=== PATIENT | female | born 1950 | race Caucasian/White ===

== ENCOUNTER 2018-09-30 11:54 | Emergency (ER) | payer MEDICARE ==
[~2018-09-30] VITALS: Ht 154.9 cm; Wt 75.5 kg
[2018-09-30] MEDS ORDERED: MAGN1CAP PO (12:12)
[2018-09-30] MEDS ORDERED: IRON15CH PO (12:12)
[2018-09-30] MEDS ORDERED: D3 H2000 PO (12:12)
[2018-09-30] MEDS ORDERED: CHONDR PO (12:12)
[2018-09-30] MEDS ORDERED: GLUCOSAMINE PO (12:12)
[2018-09-30] MEDS ORDERED: CALC600T5 PO (12:12)
[2018-09-30] MEDS ORDERED: DOCU-129 PO (12:12)
[2018-09-30] MEDS ORDERED: HYDR-3719 PO (12:12)
[2018-09-30] MEDS ORDERED: CETI5SOL3 PO (12:12)
[2018-09-30] MEDS ORDERED: CENT1TAB PO (12:12)
[2018-09-30 12:48] LABS: BASO % 0.8 % (0.0-1.0); EOS # 0.1 10^3/uL (0.0-0.50); EOS % 2.3 % (0.0-3.0); HEMATOCRIT 40.3 % (36.0-47.0); HEMOGLOBIN 13.2 g/dl (12.0-15.5); LYMPH # 1.4 10^3/uL (1.5-4.5); LYMPH % 28.8 % (24.0-44.0); MEAN CORPUSCULAR HGB CONC 32.8 g/dl (32.0-36.5); MEAN CORPUSCULAR VOLUME 88.6 fl (80.0-96.0); MONO # 0.4 10^3/uL (0.0-0.8); MONO % 8.4 % (0.0-5.0); NEUTROPHILS # 2.9 10^3/uL (1.8-7.7); NEUTROPHILS % 59.5 % (36.0-66.0); PLATELET COUNT, AUTOMATED 236 10^3/uL (150-450); RED BLOOD COUNT 4.55 10^6/uL (4.00-5.40); WHITE BLOOD COUNT 4.9 10^3/uL (4.0-10.0)
--- NOTE | 2018-09-30 12:56 | REP ---
CT Head without contrast HISTORY: Infarction COMPARISON: None Areas of decreased attenuation are present in the basal ganglia. These represent old lacunar infarctions. Areas of decreased attenuation are present in the periventricular white matter. This represents small-vessel ischemic disease. There is no intraparenchymal hemorrhage, acute infarct, mass or midline shift. The ventricular system and cortical sulci are dilated consistent with minimal volume loss. There is no extra cerebral collection. There is no fracture. The visualized sinuses are clear. IMPRESSION: 1. Old bilateral basal ganglia lacunar infarctions. 2. Small vessel ischemic disease. 3. Minimal volume loss. Electronically Signed by Luis M Heath MD 09/30/2018 12:47 P
[2018-09-30 13:00] LABS: PROTHROMBIN TIME 13.3 SECONDS (12.1-14.4)
[2018-09-30 13:01] LABS: PARTIAL THROMBOPLASTIN TIME 29.6 SECONDS (25.4-37.6)
[2018-09-30 13:12] LABS: BLOOD UREA NITROGEN 18 MG/DL (7-18); CALCIUM LEVEL 9.1 MG/DL (8.8-10.2); CARBON DIOXIDE LEVEL 30 MEQ/L (21-32); CHLORIDE LEVEL 107 MEQ/L (98-107); CPK CREATINE PHOSPHOKINASE 110 U/L (26-192); CREATININE FOR GFR 0.71 MG/DL (0.55-1.30); GLOMERULAR FILTRATION RATE > 60.0 (>45); GLUCOSE, FASTING 85 MG/DL (70-100); MB/CK RELATIVE INDEX 2.36 (< OR =4); SODIUM LEVEL 142 MEQ/L (136-145); TROPONIN I < 0.02 NG/ML (< 0.10)
--- NOTE | 2018-09-30 13:13 | REP ---
Oral chest x-ray: Single view. History: CVA. Findings: EKG electrodes are seen. Lungs are well inflated and clear. Heart size is borderline. The aorta is calcific. Pulmonary vasculature is not increased. Pleural air. No bony abnormality is seen. Impression: Borderline heart size. No active disease. Electronically Signed by Eric Hatch MD 09/30/2018 01:04 P
[2018-09-30 14:31] LABS: MAGNESIUM LEVEL 2.1 MG/DL (1.8-2.4)
[2018-09-30] MEDS ORDERED: FERR325T82 PO (14:54)
[2018-09-30] MEDS ORDERED: GLUCTAB6 PO (14:54)
[2018-09-30] MEDS ORDERED: ALL10TAB28 PO (14:54)
[2018-09-30] MEDS ORDERED: niCARdipine IV 40 MG in APPROPRIATE DILUENT 1 EA IV SCH (15:03)
--- NOTE | 2018-09-30 15:19 | REP ---
MR BRAIN WITHOUT CONTRAST: HISTORY: Headache. COMPARISON: CT 09/30/2018. Areas of increased signal intensity on T2-weighted images are present in the basal ganglia. These represent old lacunar infarctions. Areas of increased signal intensity on T2-weighted images are present in the periventricular and subcortical white matter. This represents small vessel ischemic disease. There is no intraparenchymal hemorrhage, acute infarct, mass, or midline shift. The ventricular system and cortical sulci are dilated consistent with minimal volume loss. A very small subacute subdural hematoma is present overlying the right frontal lobe at the vertex. The hematoma measures 8 mm in width by 4 mm in thickness. The sinuses are clear. IMPRESSION: 1. Old bilateral basal ganglia lacunar infarctions. 2. Small vessel ischemic disease. 3. Minimal volume loss. 4. There is a t a very small 9 mm subacute subdural hematoma over the right frontal lobe at the vertex. Results were discussed with Dr. Landis at 2:50 p.m., 09/30/2018. Electronically Signed by Luis M Heath MD 09/30/2018 03:26 P
--- NOTE | 2018-09-30 15:19 | REP ---
MRA BRAIN WITHOUT CONTRAST: HISTORY: Headaches. 3D [id number] MR angiography was performed at the level of the lower [place]. There is no aneurysm or arteriovenous malformation. Mild atherosclerotic disease involves the cavernous internal carotid arteries. The P1 segment of the right posterior cerebral artery is hypoplastic. Major intracranial vessels are patent. The left vertebral artery is dominant. The right vertebral artery terminates in the right posterior inferior cerebellar artery. IMPRESSION: 1. There is no aneurysm or arteriovenous malformation. 2. Atherosclerotic disease as described above. Electronically Signed by Luis M Heath MD 09/30/2018 03:26 P
[2018-09-30 15:41] VITALS: BP 217/93
--- NOTE | 2018-09-30 23:22 | ECGEPIP ---
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
== END 2018-09-30 15:41 | disposition short-term general hospital (02) ==
LOC: M ED 11:54
DX: I16.0 Hypertensive urgency (principal); I62.00 Nontraumatic subdural hemorrhage, unspecified; I10 Essential (primary) hypertension; Z79.899 Other long term (current) drug therapy; Z88.0 Allergy status to penicillin; Z88.8 Allergy status to other drugs, medicaments and biological substances

== ENCOUNTER → 2019-05-18 | Outpatient (REF) | payer MEDICARE ==
[~2019-05-18] MED LIST: ALL10TAB29 PO; CALC600T5 PO; CENT1TAB PO; CETI5SOL3 PO; CHONDR PO; D3 H2000 PO; DOCU-129 PO; FERR325T82 PO; GLUCOSAMINE PO; GLUCTAB6 PO; HYDR-3719 PO; IRON15CH PO; MAGN1CAP PO
[2019-05-18 17:49] LABS: APPEARANCE, URINE CLEAR (CLEAR); BACTERIA, URINE AUTO NEGATIVE (NEGATIVE); BILIRUBIN, URINE AUTO NEGATIVE (NEGATIVE); BLOOD, URINE BLOOD NEGATIVE (NEGATIVE); COLOR, URINE YELLOW (YELLOW); GLUCOSE, URINE (UA) AUTO NEGATIVE (NEGATIVE); KETONE, URINE AUTO NEGATIVE (NEGATIVE); LEUKOCYTE ESTERASE, URINE AUTO NEGATIVE (NEGATIVE); MUCUS, URINE SMALL (NEGATIVE); NITRITE, URINE AUTO NEGATIVE (NEGATIVE); PROTEIN, URINE AUTO NEGATIVE (NEGATIVE); RBC, URINE AUTO 0 /HPF (0-3); SPECIFIC GRAVITY URINE AUTO 1.008 (1.002-1.035); SQUAMOUS EPITHELIAL CELL UR AU 0 /HPF (0-6); UROBILINOGEN, URINE AUTO 0.2 mg/dL (0.0-2.0); WBC, URINE AUTO 0 /HPF (0-3)
== END ==
LOC: M LAB REF 16:26
PROVIDERS: ATTEND Obstetrics & Gynecology
DX: N39.46 Mixed incontinence (principal)

== ENCOUNTER 2019-05-26 08:26 | Outpatient (RCR) | payer MEDICARE | END 2019-06-09 | LOC: M PT 08:26 | PROVIDERS: ATTEND Obstetrics & Gynecology | DX: Z51.89 Encounter for other specified aftercare (principal); N32.81 Overactive bladder; N39.42 Incontinence without sensory awareness; N39.41 Urge incontinence; R35.1 Nocturia ==

== ENCOUNTER 2019-06-23 09:35 | Outpatient (RCR) | payer MEDICARE | END 2019-07-10 | LOC: M PT 09:35 | PROVIDERS: ATTEND Obstetrics & Gynecology | DX: Z51.89 Encounter for other specified aftercare (principal) ==

== ENCOUNTER 2020-02-10 14:29 | Emergency (ER) | payer MEDICARE ==
[~2020-02-10] VITALS: Ht 154.9 cm; Wt 95.7 kg
[~2020-02-10 14:29] MED LIST changes: -ALL10TAB29 PO; -CALC600T5 PO; +CALC600T61 PO; +CETI-24 PO
[2020-02-10] MEDS ORDERED: TRAM50TA2 (14:38)
[2020-02-10] MEDS ORDERED: AMLO1TAB24 (14:38)
[2020-02-10] MEDS ORDERED: HYDR25TAB (14:38)
--- NOTE | 2020-02-10 16:49 | REPVR ---
PROCEDURE INFORMATION: Exam: US Duplex Left Lower Extremity Veins, Limited Exam date and time: 02/10/2020 4:38 PM Age: 69 years old Clinical indication: Pain; Leg, upper; Left; Additional info: Left leg pain, swelling TECHNIQUE: Imaging protocol: Real-time Duplex ultrasound of the Left Lower Extremity with 2-D reyna scale, color Doppler flow and spectral waveform analysis with image documentation. Limited exam focused on the left lower extremity veins. COMPARISON: No relevant prior studies available. FINDINGS: Left deep veins: Unremarkable. The common femoral, femoral and popliteal veins are patent without thrombus. Normal compressibility, augmentation response and Doppler waveforms. Left superficial veins: Unremarkable. Saphenofemoral junction is patent without thrombus. Soft tissues: 3.2 x 0.8 x 2 cm popliteal cyst. IMPRESSION: 1. No sonographic evidence of deep vein thrombosis. 2. 3.2 x 0.8 x 2 cm popliteal cyst. Electronically signed by: Sean Martinez On 02/10/2020 16:48:30 PM
[2020-02-10 17:11] VITALS: BP 169/85
== END 2020-02-10 17:15 | disposition home or self-care (01) ==
LOC: M ED 14:29
DX: M71.22 Synovial cyst of popliteal space [Baker], left knee (principal); I10 Essential (primary) hypertension; E78.5 Hyperlipidemia, unspecified; Z79.899 Other long term (current) drug therapy; Z88.0 Allergy status to penicillin; Z88.8 Allergy status to other drugs, medicaments and biological substances; Z88.1 Allergy status to other antibiotic agents; Z88.6 Allergy status to analgesic agent

== ENCOUNTER → 2021-02-23 | Outpatient (CLI) | payer MEDICARE ==
[~2021-02-23] MED LIST changes: +AMLO1TAB24; -DOCU-129 PO; +DOCU-153 PO; +HYDR-3490; +TRAM50TA2
--- NOTE | 2021-02-23 13:49 | REP ---
INDICATION: BILAT KNEE PAIN. COMPARISON: None. TECHNIQUE: Three views FINDINGS: There is tricompartmental marginal osteophytosis with asymmetric patellofemoral joint space narrowing and medial compartmental narrowing. There is no evidence of an acute fracture, dislocation, or subluxation. IMPRESSION: Chronic changes as described above. <Electronically signed by Levy Oro > 02/23/21 [id number]
== END ==
LOC: M SOG 09:27
PROVIDERS: ATTEND Orthopaedic Surgery Sports Medicine
DX: M17.0 Bilateral primary osteoarthritis of knee (principal); M25.762 Osteophyte, left knee

== ENCOUNTER → 2021-03-21 | Outpatient (CLI) | payer MEDICARE ==
--- NOTE | 2021-03-21 14:30 | REP ---
INDICATION: LT SHOULDER IMPINGEMENT SYNDROME. COMPARISON: None. TECHNIQUE: Five views FINDINGS: Moderate degenerative changes are seen involving the acromioclavicular joint with asymmetric narrowing and slight marginal osteophytosis. There is a spur arising from the inferior surface of the acromion process projecting into the subacromial space. The glenohumeral relationship is within normal limits. There is no evidence of an acute fracture, dislocation, or subluxation. IMPRESSION: Chronic changes as described above. <Electronically signed by Levy Oro > 03/21/21 [id number]
== END ==
LOC: M SOG 08:54
PROVIDERS: ATTEND Orthopaedic Surgery Sports Medicine
DX: M25.712 Osteophyte, left shoulder (principal); M75.42 Impingement syndrome of left shoulder; M19.012 Primary osteoarthritis, left shoulder

== ENCOUNTER → 2021-09-08 | Outpatient (CLI) | payer MEDICARE ==
[~2021-09-08] MED LIST changes: +ISOVUE-300 61% 50ML VIAL As Ordered ONE; +LIDOCAINE 1% MDV 20ML VIAL As Ordered ONE; +methylPREDNISolone SUSP 40MG/ML 1ML VIAL (DEPO MEDROL) As Ordered ONE
== END ==
LOC: M RADPRO 12:50
PROVIDERS: ATTEND Physician Assistant
DX: S46.212A Strain of muscle, fascia and tendon of other parts of biceps, left arm, initial encounter (principal); X58.XXXA Exposure to other specified factors, initial encounter; Y92.9 Unspecified place or not applicable
CPT/HCPCS: 20610; 77002; J1030; Q9967

== ENCOUNTER → 2021-12-14 | Outpatient (CLI) | payer MEDICARE ==
[~2021-12-14] MED LIST changes: -GLUCTAB6 PO; +GLUCTAB7 PO; -ISOVUE-300 61% 50ML VIAL As Ordered ONE; -LIDOCAINE 1% MDV 20ML VIAL As Ordered ONE; -methylPREDNISolone SUSP 40MG/ML 1ML VIAL (DEPO MEDROL) As Ordered ONE
== END ==
LOC: M PLAIMG 10:52
PROVIDERS: ATTEND Physician Assistant
DX: M50.21 Other cervical disc displacement, high cervical region (principal); M50.121 Cervical disc disorder at C4-C5 level with radiculopathy; M50.322 Other cervical disc degeneration at C5-C6 level; M50.323 Other cervical disc degeneration at C6-C7 level

== ENCOUNTER → 2022-01-11 | Outpatient (CLI) | payer MEDICARE | LOC: M PLAIMG 14:13 | PROVIDERS: ATTEND Physician Assistant | DX: M19.012 Primary osteoarthritis, left shoulder (principal) ==

== ENCOUNTER → 2022-03-02 | Outpatient (CLI) | payer MEDICARE | LOC: M RAD 10:24 | PROVIDERS: ATTEND Nurse Practitioner Family | DX: D49.0 Neoplasm of unspecified behavior of digestive system (principal) ==

== ENCOUNTER → 2022-03-28 | Outpatient (CLI) | payer MEDICARE ==
[~2022-03-28] MED LIST changes: +PROHANCE 279.3MG/ML 5ML VIAL ONE
== END ==
LOC: M PLAIMG 08:52
PROVIDERS: ATTEND Nurse Practitioner Family
DX: D37.030 Neoplasm of uncertain behavior of the parotid salivary glands (principal)
CPT/HCPCS: 70543; A9576

== ENCOUNTER → 2022-04-13 | Outpatient (CLI) | payer MEDICARE ==
[~2022-04-13] MED LIST changes: -PROHANCE 279.3MG/ML 5ML VIAL ONE
== END ==
LOC: M WHC 09:47
PROVIDERS: ATTEND Nurse Practitioner Family
DX: Z12.31 Encounter for screening mammogram for malignant neoplasm of breast (principal)

== ENCOUNTER → 2022-05-07 | Outpatient (CLI) | payer MEDICARE ==
[~2022-05-07] MED LIST changes: +GABA-1171 PO; +LIDOCAINE 1% MDV 20ML VIAL As Ordered ONE
[2022-05-07 13:10] VITALS: BP 162/71
== END ==
LOC: M IRPRO 11:27
PROVIDERS: ATTEND Otolaryngology
DX: D11.0 Benign neoplasm of parotid gland (principal)

== ENCOUNTER → 2022-06-25 | Outpatient (CLI) | payer MEDICARE ==
[~2022-06-25] MED LIST changes: -LIDOCAINE 1% MDV 20ML VIAL As Ordered ONE; +PROHANCE 279.3MG/ML 5ML VIAL As Ordered ONE
== END ==
LOC: M RAD 10:32
PROVIDERS: ATTEND Otolaryngology
DX: D37.030 Neoplasm of uncertain behavior of the parotid salivary glands (principal)
CPT/HCPCS: 70543; A9576

== ENCOUNTER → 2023-04-17 | Outpatient (CLI) | payer MEDICARE ==
[~2023-04-17] MED LIST changes: -PROHANCE 279.3MG/ML 5ML VIAL As Ordered ONE
== END ==
LOC: M WHC 10:56
PROVIDERS: ATTEND Nurse Practitioner Family
DX: Z12.31 Encounter for screening mammogram for malignant neoplasm of breast (principal)

== ENCOUNTER → 2023-06-05 | Outpatient (CLI) | payer MEDICARE ==
[~2023-06-05] MED LIST changes: +PROHANCE 279.3MG/ML 15ML VIAL ONE; +PROHANCE 279.3MG/ML 5ML VIAL ONE
== END ==
LOC: M PLAIMG 10:12
PROVIDERS: ATTEND Nurse Practitioner Family
DX: R51.9 Headache, unspecified (principal); H54.3 Unqualified visual loss, both eyes

== ENCOUNTER → 2023-06-18 | Outpatient (CLI) | payer MEDICARE ==
[~2023-06-18] MED LIST changes: -PROHANCE 279.3MG/ML 15ML VIAL ONE; -PROHANCE 279.3MG/ML 5ML VIAL ONE
== END ==
LOC: M RAD 10:49
PROVIDERS: ATTEND Otolaryngology
DX: D37.030 Neoplasm of uncertain behavior of the parotid salivary glands (principal)

== ENCOUNTER → 2023-09-03 | Outpatient (CLI) | payer MEDICARE ==
[~2023-09-03] MED LIST changes: -DOCU-153 PO; +STOO100C30 PO
== END ==
LOC: M WHC 10:03
PROVIDERS: ATTEND Nurse Practitioner Family
DX: M81.0 Age-related osteoporosis without current pathological fracture (principal)

== ENCOUNTER → 2024-04-24 | Outpatient (CLI) | payer MEDICARE | LOC: M WHC 09:54 | PROVIDERS: ATTEND Nurse Practitioner Family | DX: Z12.31 Encounter for screening mammogram for malignant neoplasm of breast (principal); R92.323 Mammographic fibroglandular density, bilateral breasts ==

== ENCOUNTER → 2024-06-19 | Outpatient (CLI) | payer MEDICARE | LOC: M RAD 11:02 | PROVIDERS: ATTEND Otolaryngology | DX: D37.030 Neoplasm of uncertain behavior of the parotid salivary glands (principal) ==